=== PATIENT | female | born 1975 | race Caucasian/White ===

== ENCOUNTER 2021-12-13 12:03 | Emergency (ER) | payer OTHER, SELFPAY ==
[2021-12-13] VITALS (35 sets, daily range): BP systolic 152–203; BP diastolic 66–111; PULSE 59–82; RESP 10–25; TEMP 36.3; O2SAT 95–100
--- NOTE | ~2021-12-13 | XR_ITS ---
CORRECTED REPORT wrong order [facility] [place] XR chest 2v DATE: 12/13/2021 13:10 INDICATION: Hypertension TECHNIQUE: 2 views COMPARISON: None FINDINGS: Right ventricular peritoneal shunt catheter. Normal heart size. No hilar or mediastinal enlargement. The lungs are clear of infiltrate or consolidation. There is degenerative spurring and minimal levoscoliosis of the thoracic spine IMPRESSION: No active cardiopulmonary disease Reviewed, dictated and finalized at location A. MTDD
--- NOTE | ~2021-12-13 | CT_ITS ---
EXAMINATION: CT brain wo con DATE: 12/13/2021 13:10 INDICATION: Hypertension. 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 TECHNIQUE: Computed tomography (CT) of the head was performed without intravenous contrast. The mA wa s adjusted according to patient size. Iterative reconstruction technique was employed. Exam dose: 60 5.33 mGy-cm total exam DLP. COMPARISON: None FINDINGS: A ventriculoperitoneal shunt enters the right posterior parietal area, terminating a right frontal horn near midline. Ventricular size is within normal range. Empty sella. No intracranial mass lesion or hemorrhage, midline shift or mass effect. No subdural or epidural david mariia is detected. Large left nasal antral window and left ethmoidectomy. Minimal mucoperiosteal thickening of the right maxillary sinus. The paranasal sinuses and mastoid air cells are otherwise unremarkable. No fracture or bone destruction of the cranial vault. IMPRESSION: Right ventriculoperitoneal shunt; contiguous size within normal range Empty sella No acute intracranial finding Reviewed, dictated and finalized at Location A. Reviewed, dictated and finalized at location A. IMPRESSION: Right ventriculoperitoneal shunt; contiguous size within normal ra nge Empty sella No acute intracranial finding
--- NOTE | 2021-12-13 12:17 | ED.GENADULT ---
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 Thje patient denied any headache or neuro deficit. The patient denied any nausea/ vomiting /abdominal pain or diarrhea. Patient denied any chest pain or shortness of breath. Related Data Home Medications Medication Instructions Recorded Confirmed atorvastatin 80 mg tablet 1 tablet DAILY 12/13/21 12/13/21 ergocalciferol (vitamin D2) 1,250 1 cap WEEKLY 12/13/21 12/13/21 mcg (50,000 unit) capsule multivit with minerals-iron 18 1 tablet PO DAILY 12/13/21 12/13/21 mg-folic ac 400 mcg-vit K 25 mcg tablet (Adults Multivitamin) omeprazole 40 mg capsule,delayed 1 cap DAILY 12/13/21 12/13/21 release sertraline 50 mg tablet 1 tablet DAILY 12/13/21 12/13/21 varenicline 0.5 mg tablet 1 tablet DAILY 12/13/21 12/13/21 Allergies Allergy/AdvReac Type Severity Reaction Status Date / Time azithromycin Allergy Difficulty Verified 12/13/21 12:45 Breathing Penicillins Allergy Itching Verified 12/13/21 12:45 povidone-iodine Allergy Rash Verified 12/13/21 12:45 [From Betadine] Sulfa (Sulfonamide Allergy Difficulty Verified 12/13/21 12:45 Antibiotics) Breathing tetracycline Allergy Difficulty Verified 12/13/21 12:45 Breathing Review of Systems Review of Systems: All systems reviewed & are unremarkable except as noted in HPI and below Constitutional: Constitutional: Reports as per HPI and Reports no additional constitutional complaints Eyes: Eyes: Reports as per HPI and Reports no additional eye complaints ENT: Reports system reviewed and no additional complaints, except as documented and Reports as per HPI Cardiovascular: Cardiovascular: Reports as per HPI and Reports no additional cardiovascular complaints Respiratory: Respiratory: Reports as per HPI and Reports no additional respiratory complaints Gastrointestinal: Gastrointestinal: Reports as per HPI and Reports no additional gastrointestinal complaints Comments: epigastric discomfort from GERD Genitourinary: Genitourinary: Reports no additional female genitourinary complaints and Reports as per HPI Musculoskeletal: Musculoskeletal: Reports no additional musculoskeletal complaints and Reports as per HPI Integumentary/Breasts: Skin/Breast: Reports system reviewed and no additional complaints, except as docu and Reports as per HPI Neurologic: Reports system reviewed and no additional complaints, except as documented and Reports as per HPI Psychiatric: Psychiatric: Reports no additional psychiatric complaints and Reports as per HPI Endocrine: Endocrine: Reports no additional endocrine complaints and Reports as per HPI Hematologic/Lymphatic: Hematologic/Lymphatic: Reports no additional hematologic/lymphatic complaints and Reports as per HPI Allergic/Immunologic: Allergic/Immunologic: Reports no additional allergic/immunologic complaints and Reports as per HPI PMFSH Past Medical History Medical History (Updated 12/13/21 @ 14:05 by Luke Dey MD) section wound complication CSF rhinorrhea Toxemia in Surgical History Surgical History (Updated 12/13/21 @ 12:41 by Luke Dey MD) FARM HAND (ventriculoperitoneal) shunt status Exam Const: General: healthy appearing and no acute distress Nutritional Appearance: well nourished and obese Orientation/consciousness: patient oriented x3 Other: hypertension with a blood pressure of 184/92 HENMT: Head: normal to inspection Ears: external ears normal General nose exam: Normal external nose present Face and sinus: normal facial exam Mouth: Ye
--- NOTE | 2021-12-13 12:42 | ECG_ITS ---
Measurements Intervals [place] Rate: 64 P: 44 MO: 169 QRS: 16 QRSD: 92 T: 23 QT: 416 QTc: 431 Interpretive Statements SINUS RHYTHM NO PREVIOUS ECG AVAILABLE FOR COMPARISON Electronically Signed On 12-13-2021 20:30:53 CDT by Alina Moses M.D.
--- NOTE | 2021-12-13 12:54 | PC.NURSE ---
pt attempting to urinate at this time. Will head to radiology after bathroom.
--- NOTE | 2021-12-13 12:58 | PC.NURSE ---
Off floor to CT scan, urine obtained.
[2021-12-13 13:02] LABS: Add Urine Microscopic? YES; Appearance Urine Clear (Clear); Bilirubin Urine Negative (Negative); Blood Urine 2+ (Negative); Color Urine Light Yellow (Yellow); Glucose Urine UA Negative (Negative); Ketones Urine Negative (Negative); Leukocyte Esterase Ur Negative (Negative); Nitrate Urine Negative (Negative); Protein Urine Negative (Negative); Urobilinogen Urine 0.2 mg/dL (0.2-1.0); pH Urine 5.5 (5.0-8.0)
[2021-12-13 13:06] LABS: Bacteria Urine 1+ /hpf; Squamous Epithelial Cell Urine Moderate /hpf (Few); WBC Urine None seen /hpf (0-3)
[2021-12-13 13:24] LABS: Basophils Absolute Auto 0.04 K/mm3 (0.00-0.10); Basophils Percent Auto 0.4 % (0.0-1.0); Eosinophils Absolute Auto 0.23 K/mm3 (0.02-0.50); Eosinophils Percent Auto 2.5 % (1.0-6.0); Hematocrit 38.4 % (35.0-49.0); Hemoglobin 12.7 g/dL (12.0-15.0); Immature Granulocyte Absolute 0.06 K/mm3 (0.00-0.00); Immature Granulocyte Percent A 0.7 % (0.0-0.0); Lymphocytes Absolute Auto 2.48 K/mm3 (1.10-4.50); Lymphocytes Percent Auto 27.2 % (18.0-42.0); Mean Corpuscular HGB Conc 33.1 g/dL (32.0-36.0); Mean Corpuscular Hemoglobin 28.9 pg (27.0-31.0); Mean Corpuscular Volume 87.5 fL (78.0-102.0); Mean Platelet Volume 10.8 fl (9.2-11.8); Monocytes Absolute Auto 0.71 K/mm3 (0.10-0.90); Monocytes Percent Auto 7.8 % (2.0-11.0); Neutrophils Absolute Auto 5.6 K/mm3 (1.7-7.2); Neutrophils Percent Auto 61.4 % (50.0-70.0); Platelet Count Result 185 K/mm3 (150-420); Red Blood Count 4.39 M/mm3 (4.20-5.40); Red Cell Distribution Width 13.2 % (11.6-14.4); White Blood Count 9.1 K/mm3 (4.8-10.8)
--- NOTE | 2021-12-13 13:28 | PC.NURSE ---
EKG at bedside
[2021-12-13 13:37] LABS: INR 0.9; Prothrombin Time 10.3 Seconds (9.50-12.10)
[2021-12-13 13:51] LABS: Alanine Aminotransferase 42 U/L (14-59); Albumin Level 3.3 g/dL (3.4-5.0); Alkaline Phosphatase 80 U/L (46-116); Anion Gap 9 mmol/L (8-16); Aspartate Amino Transferase 24 U/L (15-37); Bilirubin,Total 0.3 mg/dL (0.00-1.00); Blood Urea Nitrogen 20 mg/dL (7-18); Calcium 8.6 mg/dL (8.5-10.1); Carbon Dioxide 28 mmol/L (21-32); Chloride 105 mmol/L (98-108); Estimated CRCL calculation 75 ml/min; Estimated Glomerular Filt Rate 58; Glucose 97 mg/dL (70-99); NT Pro B Type Natriuretic Pept 175 pg/mL (0-125); Osmolality Calculated 296 mOsm/kg (285-295); Sodium 142 mmol/L (136-145); Total Protein 6.6 g/dL (6.4-8.2)
[2021-12-13 13:57] LABS: Thyroid Stimulating Hormone 3.55 uIU/mL (0.36-3.74); Troponin I 8.3 ng/L (0.00-60.4)
--- NOTE | 2021-12-13 14:43 | PC.NURSE ---
While attempting to discharge patient, BP was 203/111. MD aware, discharge on hold at this time due to elevation. MD to place order to catapres. patient aware, agreeable to plan of care.
[2021-12-13] MEDS: cloNIDine HCL 0.1 MG TABLET PO ×2 (14:47→15:48)
[2021-12-13] MEDS: LOSARTAN POTASSIUM 50 MG TABLET PO (15:48)
== END 2021-12-13 16:50 | disposition home or self-care (01) ==
PROVIDERS: Emergency Provider Internal Medicine Critical Care Medicine; PCP Physician Assistant
DX: I10 Essential (primary) hypertension (principal)
CPT/HCPCS: 36415; 70450; 71045; 71046; 80053; 81001; 83605; 83880; 84443; 84484; 85025; 85610; 93005; 99284; A9270

== ENCOUNTER 2023-12-21 23:19 | Emergency (ER) | payer OTHER, SELFPAY ==
--- NOTE | ~2023-12-21 | CT_ITS ---
EXAMINATION: CT brain wo con DATE: 12/21/2023 23:47 INDICATION: Dizziness. TECHNIQUE: Computed tomography (CT) of the head was performed without intravenous contrast. The mA wa s adjusted according to patient size. Iterative reconstruction technique was employed. The dose-lengt h product was 605.33 mGy-cm. COMPARISON: Head CT 12/13/2021 FINDINGS: There is no intracranial hemorrhage, acute infarction, or abnormal intracranial mass lesion . There is a right occipital shunt catheter that passes through the right lateral ventricle with tip in the anterior corpus callosum on the right. The right lateral ventricle is small. There is an empty sella. The orbits are normal. There is mild mucosal thickening in the paranasal sinuses. There are s urgical changes of the paranasal sinuses. The mastoid air cells are normal. IMPRESSION: 1. Small right lateral ventricle with interval worsening with shunt catheter in unchanged position. Reviewed, dictated and finalized at location E.
[2023-12-21 23:28] VITALS: BP 227/113; PULSE 79; RESP 18; TEMP 37; O2SAT 98
--- NOTE | 2023-12-21 23:28 | ECG_ITS ---
Test Date: 2023-12-21 23:35:50 Measurements Intervals [place] Rate: 58 P: 48 WI: 166 QRS: 29 QRSD: 95 T: 77 QT: 421 QTc: 415 Interpretive Statements SINUS BRADYCARDIA NONSPECIFIC T-WAVE ABNORMALITY INTERPRETATION BASED ON A DEFAULT AGE OF 40 YEARS No previous ECG available for comparison Electronically Signed On 12-23-2023 11:37:54 CDT by Zuleima Gomez M.D.
--- NOTE | 2023-12-21 23:30 | ED.GENADULT ---
HPI - General Adult General Chief complaint: Dizziness Stated complaint: Dizzy Time Seen by Provider: 12/21/23 23:27 History of Present Illness HPI narrative: Jo is a 48F with a PMH of obesity, epilepsy, cranial shunt, and hypertension that presented to the ED with dizziness for about a month. It is worse with getting up and turning her head but she has it at rest as well. She vomited twice but is currently not nauseated. There is no chest pain, dyspnea, diarrhea or palpitations. Related Data Home Medications Medication Instructions Recorded Confirmed atorvastatin 80 mg tablet 1 tablet DAILY 12/13/21 12/21/23 ergocalciferol (vitamin D2) 1,250 1 cap WEEKLY 12/13/21 12/21/23 mcg (50,000 unit) capsule multivit with minerals-iron 18 1 tablet PO DAILY 12/13/21 12/21/23 mg-folic ac 400 mcg-vit K 25 mcg tablet (Adults Multivitamin) omeprazole 40 mg capsule,delayed 1 cap DAILY 12/13/21 12/21/23 release sertraline 50 mg tablet 1 tablet DAILY 12/13/21 12/21/23 varenicline 0.5 mg tablet 1 tablet DAILY 12/13/21 12/21/23 Allergies Allergy/AdvReac Type Severity Reaction Status Date / Time azithromycin Allergy Difficulty Verified 12/13/21 12:45 Breathing Penicillins Allergy Itching Verified 12/13/21 12:45 povidone-iodine Allergy Rash Verified 12/13/21 12:45 [From Betadine] Sulfa (Sulfonamide Allergy Difficulty Verified 12/13/21 12:45 Antibiotics) Breathing tetracycline Allergy Difficulty Verified 12/13/21 12:45 Breathing Review of Systems Review of Systems: All systems reviewed & are unremarkable except as noted in HPI and below PMFSH Past Medical History Medical History section wound complication CSF rhinorrhea Toxemia in Surgical History Surgical History PUMPER HEAD (ventriculoperitoneal) shunt status Exam Const: General: cooperative, healthy appearing, comfortable, no acute distress, well developed, alert, awake and Physically active Orientation/consciousness: oriented to person, oriented to place and oriented to time HENMT: Head: normal to inspection, normocephalic and atraumatic Ears: hearing grossly normal bilaterally and external ears normal Face/Nose/Sinus: Normal external nose present Eyes: General: appearance normal, both eyes and all related structures Periorbital: periorbital findings normal Sclera: sclerae normal Pupils: Equal, round and reactive pupils present Neck: Neck: normal visual inspection Chest: Chest palpation & inspection: normal inspection of the chest Resp: Effort & Inspection: normal respiratory effort, able to speak in complete sentences and no respiratory distress Auscultation: clear to auscultation bilaterally Cardio: Jugular venous distension: no JVD Rate: regular rate Rhythm: regular rhythm GI: Inspection: normal to inspection GI Palp: Yes Soft to palpation Auscultation: normal bowel sounds Skin: General skin exam: normal color and no rashes or lesions noted Neuro: General: oriented to person, oriented to place and oriented to time Cranial nerves: Yes Equal, round and reactive pupils present Other: Right sided nystagmus, vertcal nystagmus and corrective saccade on HINTS exam Extrem: General: normal to inspection Course Course Emergency Course: Ordered EKG, CT, and labs. EKG showed sinus bradycardia with a rate of 58, normal axis, and no ST elevation/depression Ordered PO metoprolol CT showed no hemorrhage, hydrocephalus, mass effect or herniation. Shunt catheter in place DDx: BPPV vs. hypertension vs. CVA vs. PRES vs other Given that her EKG is unremarkable, she does not have AMS, and she is not in acute renal failure there are no signs of end organ damage. I discussed the need to follow up with her primary care provider very soon as she will need additional testing/meds to treat this. She was giv
--- NOTE | 2023-12-21 23:32 | PC.NURSE ---
cardiopulmonary at the bedside. lab notified of new orders
--- NOTE | 2023-12-21 23:34 | PC.NURSE ---
xray at the bedside
--- NOTE | 2023-12-21 23:36 | PC.NURSE ---
patient being transported to ct via stretcher.
[2023-12-21 23:46] VITALS: BP 231/109; PULSE 71; RESP 25; O2SAT 98
[2023-12-21 23:50] VITALS: BP 240/103; PULSE 58; RESP 12; O2SAT 96
[2023-12-21 23:51] VITALS: PULSE 64; RESP 20; O2SAT 96
--- NOTE | 2023-12-21 23:51 | PC.NURSE ---
ER provider at the bedside
--- NOTE | 2023-12-21 23:52 | PC.NURSE ---
ER provider aware of current vital signs
--- NOTE | 2023-12-21 23:57 | PC.NURSE ---
lab at the bedside
[2023-12-22] VITALS: BP 232/93; PULSE 62; RESP 15; O2SAT 96
[2023-12-22 00:02] VITALS: BP 232/93; PULSE 63; RESP 18; O2SAT 99
--- NOTE | 2023-12-22 00:02 | PC.NURSE ---
patient reports that she is no longer taking her blood pressure medications because her provider told her not to.
[2023-12-22 00:08] VITALS: PULSE 67
[2023-12-22] MEDS: METOPROLOL TARTRATE 50 MG TAB PO (00:08)
[2023-12-22 00:14] LABS: Basophils Absolute Auto 0.04 K/mm3 (0.00-0.10); Basophils Percent Auto 0.4 % (0.0-1.0); Eosinophils Absolute Auto 0.09 K/mm3 (0.02-0.50); Eosinophils Percent Auto 0.9 % (1.0-6.0); Hematocrit 44.1 % (35.0-49.0); Hemoglobin 14.6 g/dL (12.0-15.0); Immature Granulocyte Absolute 0.05 K/mm3 (0.00-0.00); Immature Granulocyte Percent A 0.5 % (0.0-0.0); Lymphocytes Absolute Auto 2.85 K/mm3 (1.10-4.50); Mean Corpuscular HGB Conc 33.1 g/dL (32-36); Mean Corpuscular Volume 87.7 fL (78.0-102.0); Mean Platelet Volume 11.5 fl (9.2-11.8); Monocytes Absolute Auto 0.86 K/mm3 (0.10-0.90); Monocytes Percent Auto 8.7 % (2.0-11.0); Neutrophils Absolute Auto 5.94 K/mm3 (1.70-7.20); Neutrophils Percent Auto 60.5 % (50.0-70.0); Platelet Count Result 182 K/mm3 (150-420); Red Blood Count 5.03 M/mm3 (4.20-5.40); Red Cell Distribution Width 13.6 % (11.6-14.4); White Blood Count 9.8 K/mm3 (4.8-10.8)
[2023-12-22 00:30] VITALS: BP 238/99; PULSE 60; RESP 17; O2SAT 96
[2023-12-22 00:32] VITALS: BP 238/99; PULSE 56; RESP 12; O2SAT 97
[2023-12-22 00:43] LABS: Alanine Aminotransferase 30 U/L (14-59); Albumin Level 3.5 g/dL (3.4-5.0); Alkaline Phosphatase 68 U/L (46-116); Anion Gap 8 mmol/L (4-12); Aspartate Amino Transferase 18 U/L (15-37); Bilirubin,Total 0.5 mg/dL (0.00-1.00); Blood Urea Nitrogen 19 mg/dL (7-18); Calcium 9.2 mg/dL (8.5-10.1); Carbon Dioxide 29 mmol/L (21-32); Chloride 103 mmol/L (98-108); Estimated CRCL calculation 53 ml/min; Estimated Glomerular Filt Rate 40; Glucose 100 mg/dL (70-99); Magnesium 1.9 mg/dL (1.8-2.4); NT Pro B Type Natriuretic Pept 969 pg/mL (0-125); Osmolality Calculated 292 mOsm/kg (285-295); Potassium 3.8 mmol/L (3.5-5.1); Sodium 140 mmol/L (136-145); Total Protein 7.4 g/dL (6.4-8.2)
--- NOTE | 2023-12-22 00:51 | PC.NURSE ---
patient resting on stretcher with family at her side. denies any needs at this time. call light in reach. waiting on test results to post.
[2023-12-22 01:05] VITALS: BP 239/90; PULSE 61; RESP 11; O2SAT 99
--- NOTE | 2023-12-22 01:05 | PC.NURSE ---
ER provider at the bedside
--- NOTE | 2023-12-22 01:10 | PC.NURSE ---
patient removed herself from the monitor. ER provider reports that she will be discharged
== END 2023-12-22 01:16 | disposition home or self-care (01) ==
PROVIDERS: Emergency Provider Family Medicine; PCP Physician Assistant
DX: R42 Dizziness and giddiness (principal); I16.0 Hypertensive urgency; Z79.899 Other long term (current) drug therapy
CPT/HCPCS: 36415; 70450; 80053; 83735; 83880; 84484; 85025; 93005; 99284; A9270

== ENCOUNTER 2023-12-29 12:58 | Outpatient (CLI) | payer OTHER, SELFPAY ==
--- NOTE | ~2023-12-29 | CT_ITS ---
CT facial bones wo con Ordering provider: Saul Andrew, ELVIA History: . Headache . Comparison: None. Technique: Thin slice axial CT of the facial bones was performed without contrast. Coronal and sagit kahlil reformatted images were also obtained. . Automated exposure control and iterative reconstruction technique were employed. The dose-length product was 763.27 mGy-cm. FINDINGS: PARANASAL SINUSES: Post operative changes in the medial wall of the left maxillary sinus. Right nasal septal deviation. BONES: No facial fracture. Cystic lesion seen in the area of the upper mandible anteriorly and to the left which may indicate abscess or dental cyst. Another smaller one is seen on the right side simila r changes seen anteriorly in the lower mandible. Dental caries are noted in the lower and upper jaw. ORBITS AND SUPERFICIAL SOFT TISSUES: The optic globes and orbits are normal. The superficial soft tis sues are normal. VISUALIZED MASTOIDS: Well aerated. LIMITED VISUALIZED BRAIN PARENCHYMA: Normal. Empty sella turcica. Right shunt tube is noted. IMPRESSION: No facial fracture. Cystic areas in the upper and lower mandible for further evaluation. Reviewed, dictated and finalized at location A.
--- NOTE | ~2023-12-29 | CT_ITS ---
EXAMINATION: CT brain wo con DATE: 12/29/2023 14:02 INDICATION: Headache. TECHNIQUE: Computed tomography (CT) of the head was performed without intravenous contrast. The mA wa s adjusted according to patient size. Iterative reconstruction technique was employed. The dose-lengt h product was 605.33 mGy-cm. COMPARISON: Head CT 12/21/2023 FINDINGS: There is low attenuation in the occipital lobes bilaterally. There is no intracranial hemor rhage or abnormal mass lesion. Right lateral ventricle is small and slitlike. There is a right occipi kahlil shunt catheter that passes through the right lateral ventricle with tip in the anterior corpus ca llosum on the right. The orbits are normal. There is an empty sella. There is mild mucosal thickening in the paranasal sinuses. There are surgical changes of the paranasal sinuses. The mastoid air cells are normal. IMPRESSION: 1. Low attenuation in the occipital lobes, which may be posterior reversible encephalopathy syndrome (PRES) or acute/subacute infarcts. Consider brain MRI without and with contrast. 2. Unchanged slit-like right lateral ventricle with unchanged catheter position. Reviewed, dictated and finalized at location A. IMPRESSION: 1. Low attenuation in the occipital lobes, which may be posterior reversible en cephalopathy syndrome (PRES) or acute/subacute infarcts. Consider brain MRI wit hout and with contrast. 2. Unchanged slit-like right lateral ventricle with unchanged catheter position .
--- NOTE | ~2023-12-29 | US_ITS ---
EXAMINATION: US carotid duplex BI DATE: 12/29/2023 13:40 INDICATION: Dizziness. TECHNIQUE: Grayscale, color Doppler, and pulsed Doppler images of the cervical carotid arteries were obtained. The degree of vessel stenosis is placed in one of the following categories: normal, <50%, 5 0-69%, >=70% but less than near-occlusion, near-occlusion, or total occlusion. Note that percent sten osis relative to normal distal artery lumen diameter is indirectly measured from velocity measurement s as described by Terrell, et al. Radiology 2003; 229:340-346. COMPARISON: None. FINDINGS: RIGHT: The right common carotid artery (CCA) peak systolic velocity (PSV) is 102 cm/s. The right internal ca rotid artery (ICA) PSV is 108 cm/s. The right ICA end-diastolic velocity (EDV) is 38 cm/s. The right ICA/CCA PSV ratio is 1.1. Grayscale and color Doppler images yield an estimate of <50% diameter reduc tion from plaque in the ICA. There is antegrade flow in the right vertebral artery. LEFT: The left CCA PSV is 79 cm/s. The left ICA PSV is 144 cm/s. The left ICA EDV is 47 cm/s. The left ICA/ CCA PSV ratio is 1.8. Grayscale and color Doppler images yield an estimate of <50% diameter reduction from plaque in the ICA. There is antegrade flow in the left vertebral artery. IMPRESSION: 1. <50% stenosis in the right internal carotid artery. 2. <50% stenosis in the left internal carotid artery. Reviewed, dictated and finalized at location A.
== END 2023-12-29 12:59 | disposition home or self-care (01) ==
LOC: CHSIMG 13:00
PROVIDERS: PCP Physician Assistant; Visit Provider Physician Assistant
DX: R42 Dizziness and giddiness (principal); R51.9 Headache, unspecified; R93.0 Abnormal findings on diagnostic imaging of skull and head, not elsewhere classified; I65.23 Occlusion and stenosis of bilateral carotid arteries
CPT/HCPCS: 70450; 70486; 93880

== ENCOUNTER 2024-01-10 07:35 | Outpatient (CLI) | payer OTHER, SELFPAY ==
--- NOTE | ~2024-01-10 | MR_ITS ---
EXAMINATION: MR brain/brain stem wo/w con DATE: 01/10/2024 08:57 INDICATION: Headache. Abnormal head CT. TECHNIQUE: Magnetic resonance imaging (MRI) of the brain and brainstem was performed without and with 10 mL MultiHance intravenous contrast. COMPARISON: Head CT 12/29/2023 FINDINGS: There is an empty sella. There are acute infarcts involving the occipital lobes. There are subacute infarcts involving the bilateral cerebellum, bilateral occipital lobes, and left temporal lo be with contrast enhancement. There are scattered areas of nonspecific increased T2-weighted signal i ntensity in the cerebral white matter. There is no intracranial hemorrhage or abnormal mass lesion. R ight lateral ventricle is small and slit-like. A right-sided ventriculostomy catheter is noted that c ourses through the right lateral ventricle with tip in the corpus callosum. There is mild mucosal thi ckening in the paranasal sinuses. The mastoid air cells are normal. The orbits are normal. IMPRESSION: 1. 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 2. Subacute infarcts involving the occipital lobes, left temporal lobe, and bilateral cerebellum. 3. Small slitlike right lateral ventricle with unchanged shunt catheter. Reviewed, dictated and finalized at location A. IMPRESSION: 1. 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 2. Subacute infarcts involving the occipital lobes, left temporal lobe, and tyler ateral cerebellum. 3. Small slitlike right lateral ventricle with unchanged shunt catheter.
== END 2024-01-10 07:36 | disposition home or self-care (01) ==
LOC: CHSIMG 07:36
PROVIDERS: PCP Physician Assistant; Visit Provider Physician Assistant
DX: R90.89 Other abnormal findings on diagnostic imaging of central nervous system (principal); I63.89 Other cerebral infarction; Z98.2 Presence of cerebrospinal fluid drainage device
CPT/HCPCS: 70553; A9577

== ENCOUNTER 2024-01-29 11:04 | Outpatient (CLI) | payer OTHER, SELFPAY ==
--- NOTE | 2024-02-09 14:13 | WPDHOLTEREM ---
Holter/Event Monitor Holter/Event Monitor Date of procedure: 01/29/24 Holter/Event Procedure: 48 Hr Holter Monitor Indications: Occipitotemporal infarct Conclusion: 1. 48 hour holter monitor on 01/29/24. 2. Underlying rhythm is sinus rhythm. HR range 49-128 bpm; average HR 70 bpm. HR at 49 bpm was at 06:13. 3. There are 30 premature supraventricular complexes, 1 supraventricular couplet and 2 supraventricular triplets. No supraventricular tachycardia. 4. No premature ventricular complexes. No ventricular tachycardia. 5. No sinoatrial or atrioventricular blocks. No significant pauses greater than 2 seconds. 6. Patient reports 2 episodes of symptoms of dizziness which demonstrate sinus rhythm, HR range 64-77 bpm.
== END 2024-01-29 11:05 | disposition home or self-care (01) ==
LOC: CHSCARD 11:06
PROVIDERS: PCP Physician Assistant; Visit Provider Physician Assistant
DX: I63.9 Cerebral infarction, unspecified (principal)
CPT/HCPCS: 93225; 93226

== ENCOUNTER 2024-12-10 18:12 | Emergency (ER) | payer OTHER, SELFPAY ==
[2024-12-10] VITALS (11 sets, daily range): BP systolic 137–146; BP diastolic 72–73; PULSE 46–60; RESP 13–19; TEMP 36.6; O2SAT 97–100
--- NOTE | ~2024-12-10 | CT_ITS ---
EXAMINATION: CT brain wo con DATE: 12/10/2024 18:38 INDICATION: Stroke . TECHNIQUE: Computed tomography (CT) of the head was performed without intravenous contrast. The mA wa s adjusted according to patient size. Iterative reconstruction technique was employed. The dose-lengt h product was 605.33 mGy-cm. COMPARISON: 12/29/2023 MRI brain 01/10/2024. FINDINGS: No acute intracranial hemorrhage or extra-axial fluid collection. No hydrocephalus, mass, or herniation. No acute ischemic infarct. Unremarkable dural venous sinus attenuation. No acute osseous abnormality. Right parietal approach SURGICAL ASSISTANT CERTIFIED shunt terminating at the midline probably wi thin the corpus callosum or tenting the anterior portion of a frontal horn, stable in position. Small retention cyst/polyp in the left maxillary sinus. Status post left maxillary window procedure. The remaining aerated spaces are clear. Bilateral medial occipital encephalomalacia. Stable slitlike right frontal horn. Empty sella. Stable 9 mm dermal lesion over the left scalp. IMPRESSION: No acute intracranial process. Results reported telephonically to Dr. Petty by Dr. Bang at 6:26 PM on 12/10/2024. Reviewed, dictated and finalized at location K. IMPRESSION: No acute intracranial process. Results reported telephonically to Dr. Petty by Dr. Bang at 6:26 PM on 12/10.
--- NOTE | ~2024-12-10 | XR_ITS ---
EXAMINATION: XR chest 1V portable Exam Date/Time: 12/10/2024 18:40 CDT HISTORY: weakness Comparison: 12/13/2021. RESULT: Lines, tubes, and devices: Intact AGRICULTURAL INSPECTOR shunt tubing traverses the right chest. Lungs and pleura: Clear. Cardiomediastinal silhouette: Stable. Other: No acute osseous or upper abdominal finding. IMPRESSION: No acute cardiopulmonary process. Reviewed, dictated and finalized at location K.
--- NOTE | 2024-12-10 18:30 | ED_ITS ---
HPI - Weakness General Chief complaint: Weakness Stated complaint: possible CVA Time Seen by Provider: 12/10/24 18:29 Source: patient Mode of arrival: ambulatory Limitations: no limitations History of Present Illness HPI Narrative: patient is a 49-year-old female with prior stroke x2 and hypertension here with a weakness and concerns for her shunt and stroke. She was met initially to go to CT scan directly and her NIH score was 0. Last known well was 5 days ago. She has been having some falls. She is having some weakness. Her initial GCS was 15. She is not a tPA candidate. MD Complaint: generalized weakness Onset (ago): day(s) ( Five) Duration: constant Location: generalized Migration: none Severity: mild Severity scale (1-10): 2 Quality: other ( none) Relieving factors: none Exacerbating factors: none Context: other ( patient has mostly come to the ER for concerns of her shot having a problem and her weakness and falls. She called in to EMS with possible stroke.) Associated symptoms: denies other symptoms Related Data Home Medications ?Medication ?Instructions ?Recorded ?Confirmed ?Last Taken ?Type atorvastatin 80 mg tablet 1 tablet PO DAILY 12/13/21 12/21/23 Unknown History multivit with minerals-iron 18 1 tablet PO DAILY 12/13/21 12/21/23 Unknown History mg-folic ac 400 mcg-vit K 25 mcg tablet (Adults Multivitamin) omeprazole 40 mg capsule,delayed 1 cap PO DAILY 12/13/21 12/21/23 Unknown History release amlodipine 10 mg tablet 5 mg PO DAILY 12/10/24 Unknown History sertraline 100 mg tablet 100 mg PO Q24H 12/10/24 Unknown History topiramate 50 mg tablet 50 mg PO Q12H 12/10/24 Unknown History Allergies Allergy/AdvReac Type Severity Reaction Status Date / Time azithromycin Allergy Difficulty Verified 12/13/21 12:45 Breathing Penicillins Allergy Itching Verified 12/13/21 12:45 povidone-iodine (From Allergy Rash Verified 12/13/21 12:45 Betadine) Sulfa (Sulfonamide Allergy Difficulty Verified 12/13/21 12:45 Antibiotics) Breathing tetracycline Allergy Difficulty Verified 12/13/21 12:45 Breathing Review of Systems 2 Review of Systems: All systems reviewed & are unremarkable except as noted in HPI and below Constitutional: Constitutional: Reports no additional constitutional complaints Eyes: Eyes: Reports no additional eye complaints ENT: Reports system reviewed and no additional complaints, except as documented Cardiovascular: Cardiovascular: Reports no additional cardiovascular complaints Respiratory: Respiratory: Reports no additional respiratory complaints Gastrointestinal: Gastrointestinal: Reports no additional gastrointestinal complaints Genitourinary: Genitourinary: Reports no additional female genitourinary complaints Musculoskeletal: Musculoskeletal: Reports no additional musculoskeletal complaints Integumentary/Breasts: Skin/Breast: Reports system reviewed and no additional complaints, except as docu Neurologic: Reports system reviewed and no additional complaints, except as documented Psychiatric: Psychiatric: Reports no additional psychiatric complaints Endocrine: Endocrine: Reports no additional endocrine complaints Hematologic/Lymphatic: Hematologic/Lymphatic: Reports no additional hematologic/lymphatic complaints Allergic/Immunologic: Allergic/Immunologic: Reports no additional allergic/immunologic complaints PMFSH Past Medical History Medical History section wound complication 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 Surgical History Surgical History CERTIFIED MASTER LOCKSMITH (ventriculoperitoneal) shunt status Exam 2 Const: General: healthy appearing Nutritional Appearance: well nourished Orientation/consciousness: patient oriented x3 Limitations: no limitations HENMT: Head: normal to inspection Ears: external ears normal F ladi/Nose/Sinus: Normal external nose present Eyes: Conjunctivae: conjunctivae normal Pupils: Equal, round and reactive pupils present EOM: EOMs intact bilaterally Neck: Neck: normal visual inspection Chest: Chest palpation & inspection: normal inspection of the chest Resp: Effort & Inspection: normal respiratory effort and not labored A uscultation: clear to auscultation bilaterally and no crackles Cardio: Rate: regular rate Rhythm: regular rhythm Heart sounds: no murmurs GI: Inspection: non-distended GI Palp: Yes Soft to palpation and No Tenderness to palpation present (GI) Auscultation: normal bowel sounds : General: Yes bladder normal to palpation Back/Spine/Pelvis: Back: no CVA tenderness Skin: General skin exam: normal color Rashes: no rashes Wounds: no wounds Neuro: General: patient oriented x3, moves all extremities, no meningeal signs, no focal motor deficits and CN's II-XI intact bilaterally Cranial nerves: Yes Nystagmus not present Speech: normal speech ( except for she is missing her top row of teeth) Gait exam (Neuro): gait abnormal ( due to general weakness) Extrem: General: normal to inspection Psych: Mental Status: mental status grossly normal Affect: normal affect Attitude: cooperative Course Vital Signs Vital signs: Vital Signs Temperature 36.6 C 12/10/24 18:40 Pulse Rate 60 12/10/24 18:40 Respiratory Rate 16 12/10/24 18:40 Blood Pressure 137/73 12/10/24 18:40 Pulse Oximetry 100 12/10/24 18:40 Oxygen Delivery Room Air 12/10/24 18:40 Temperature 36.6 C 12/10/24 18:40 Pulse Rate 60 12/10/24 18:40 Respiratory Rate 16 12/10/24 18:40 Blood Pressure 137/73 12/10/24 18:40 Pulse Oximetry 100 12/10/24 18:40 Oxygen Delivery Room Air 12/10/24 18:40 MDM - Weakness MDM Narrative Medical decision making narrative: patient is a 49-year-old female with general weakness and concerns for her shunt. Who will do a workup at this time. Initially she was a stroke portal and we further learned later that she was 5 days of weakness. Also she did not have any focal neurological deficits. She is not tPA candidate. Lab Data Attestation: I reviewed the patient's lab results. 12/10/24 18:20 12/10/24 18:20 Labs: Lab Results 12/10/24 12/10/24 Range/Units 18:20 18:57 WBC 7.5 (4.8-10.8) K/mm3 RBC 4.91 (4.20-5.40) M/mm3 Hgb 13.4 (12.0-15.0) g/dL Hct 42.7 (35.0-49.0) % MCV 87.0 (78.0-102.0) fL MCH 27.3 (27.0-31.0) pg MCHC 31.4 L (32-36) g/dL RDW 13.3 (11.6-14.4) % Plt Count 218 (150-420) K/mm3 MPV 11.1 (9.2-11.8) fl Immature Gran % (Auto) 0.7 H (0.0-0.0) % Neut % (Auto) 75.0 H (50.0-70.0) % Lymph % (Auto) 17.4 L (18.0-42.0) % [place] % (Auto) 5.6 (2.0-11.0) % Eos % (Auto) 0.8 L (1.0-6.0) % Baso % (Auto) 0.5 (0.0-1.0) % Lymph # (Auto) 1.30 (1.10-4.50) K/mm3 [place] # (Auto) 0.42 (0.10-0.90) K/mm3 Eos # (Auto) 0.06 (0.02-0.50) K/mm3 Baso # (Auto) 0.04 (0.00-0.10) K/mm3 Abs Immat Gran (auto) 0.05 H (0.00-0.00) K/mm3 Absolute Neuts (auto) 5.60 (1.70-7.20) K/mm3 Absolute Nucleated RBC 0.00 (0.00-0.00) K/mm3 Nucleated RBC % 0.0 (0-0.0) % PT 10.7 (9.50-12.1) Seconds INR 1.0 APTT 23.6 L (23.9-30.70) Sec Sodium 139 (137-145) mmol/L Potassium 3.3 L (3.4-5.0) mmol/L Chloride 109 H (98-107) mmol/L Carbon Dioxide 20 L (22-30) mmol/L Anion Gap 10 (4-12) mmol/L BUN 25 H (7-17) mg/dL Creatinine 1.34 H (0.7-1.0) mg/dL Estim Creat Clear Calc 50 ml/min Estimated GFR 42 L (59 - ) Glucose 114 H (65-110) mg/dL Calculated Osmolality 293 (285-295) mOsm/kg Calcium 9.1 (8.4-10.2) mg/dL Magnesium 1.7 (1.6-2.3) mg/dL Total Bilirubin 0.6 (0.2-1.3) mg/dL AST 17 (14-36) U/L ALT 15 (6-35) U/L Alkaline Phosphatase 77 (38-126) U/L Troponin I < 0.012 (0.000-0.034) ng/mL Total Protein 7.6 (6.3-8.2) g/dL Albumin 4.2 (3.5-5.1) g/dL Urine Color Yellow (Yellow) Urine Appearance Cloudy A (Clear) Urine pH 5.5 (5.0-8.0) Ur Specific [place] >= 1.030 H (1.010-1.020) Urine Protein Trace H (Negative) Urine Glucose (UA) Negative (Negative) Urine Ketones Trace H (Negative) Ur Blood (Man) 1+ H (Negative) Urine Nitrate Negative (Negative) Urine Bilirubin 2+ H (Negative) Urine Urobilinogen 1.0 (0.2-1.0) mg/dL Leukocyte Esterase Rfl Negative (Negative) NARINDER/UL Urine RBC 0-2 (0-2) /hpf Urine WBC 0-3 (0-3) /hpf Ur Squamous Epith Cells Many H (Few) /hpf Urine Bacteria 1+ H (None) /hpf Urine Mucus Few H /lpf Imaging Data Attestation: I personally reviewed and interpreted this imaging study as follows: Radiologist's impression: CT scan of the head shows no acute process and a stable shunt chest x-ray is negative for acute process ECG Data EKG #1: Attestation: I personally reviewed and interpreted this ECG as follows: ECG completion date: 12/10/24 ECG completion time: 20:57 EKG Interpretation: bradycardia, sinus rhythm, no ectopy, no ST changes, normal QRS, normal QT and NL axis Discharge Plan Discharge Clinical Impression: TWIN (acute kidney injury), Acute dehydration, Hypokalemia Patient Disposition: Home Condition: Stable Instructions: Dehydration (ED) Additional Instructions: please follow-up with the primary doctor in the next week. Have your electrolytes and kidney function rechecked at follow-up. Patient Language: Luxembourgish Prescriptions: No Action atorvastatin 80 mg tablet 1 tablet PO DAILY omeprazole 40 mg capsule,delayed release(DR/EC) 1 cap PO DAILY Adults Multivitamin 18 mg iron-400 mcg-25 mcg Tablet 1 tablet PO DAILY sertraline 100 mg tablet 100 mg PO Q24H topiramate 50 mg tablet 50 mg PO Q12H amlodipine 10 mg tablet 5 mg PO DAILY Follow-up/Referrals: UNKNOWN,DOCTOR [Non-Staff] - Time of Disposition: 20:59
[2024-12-10 18:42] LABS: Basophils Absolute Auto 0.04 K/mm3 (0.00-0.10); Basophils Percent Auto 0.5 % (0.0-1.0); Eosinophils Absolute Auto 0.06 K/mm3 (0.02-0.50); Eosinophils Percent Auto 0.8 % (1.0-6.0); Hematocrit 42.7 % (35.0-49.0); Hemoglobin 13.4 g/dL (12.0-15.0); Immature Granulocyte Absolute 0.05 K/mm3 (0.00-0.00); Immature Granulocyte Percent A 0.7 % (0.0-0.0); Lymphocytes Percent Auto 17.4 % (18.0-42.0); Mean Corpuscular HGB Conc 31.4 g/dL (32-36); Mean Corpuscular Hemoglobin 27.3 pg (27.0-31.0); Mean Platelet Volume 11.1 fl (9.2-11.8); Monocytes Absolute Auto 0.42 K/mm3 (0.10-0.90); Monocytes Percent Auto 5.6 % (2.0-11.0); Platelet Count Result 218 K/mm3 (150-420); Red Blood Count 4.91 M/mm3 (4.20-5.40); Red Cell Distribution Width 13.3 % (11.6-14.4); White Blood Count 7.5 K/mm3 (4.8-10.8)
[2024-12-10 18:43] LABS: Partial Thromboplastin Time 23.6 Sec (23.9-30.70); Prothrombin Time 10.7 Seconds (9.50-12.1)
[2024-12-10 18:49] LABS: Alanine Aminotransferase 15 U/L (6-35); Albumin Level 4.2 g/dL (3.5-5.1); Alkaline Phosphatase 77 U/L (38-126); Anion Gap 10 mmol/L (4-12); Aspartate Amino Transferase 17 U/L (14-36); Bilirubin,Total 0.6 mg/dL (0.2-1.3); Blood Urea Nitrogen 25 mg/dL (7-17); Calcium 9.1 mg/dL (8.4-10.2); Carbon Dioxide 20 mmol/L (22-30); Chloride 109 mmol/L (98-107); Estimated CRCL calculation 50 ml/min; Estimated Glomerular Filt Rate 42; Glucose 114 mg/dL (65-110); Magnesium 1.7 mg/dL (1.6-2.3); Osmolality Calculated 293 mOsm/kg (285-295); Potassium 3.3 mmol/L (3.4-5.0); Sodium 139 mmol/L (137-145); Total Protein 7.6 g/dL (6.3-8.2)
[2024-12-10 19:00] LABS: Troponin I < 0.012 ng/mL (0.000-0.034)
[2024-12-10 19:04] LABS: Add Urine Microscopic? YES; Appearance Urine Cloudy (Clear); Bilirubin Urine 2+ (Negative); Blood Urine 1+ (Negative); Color Urine Yellow (Yellow); Glucose Urine UA Negative (Negative); Ketones Urine Trace (Negative); Leukocyte Esterase Ur Negative LEU/UL (Negative); Nitrate Urine Negative (Negative); Protein Urine Trace (Negative); Specific Grav Ur >= 1.030 (1.010-1.020); pH Urine 5.5 (5.0-8.0)
[2024-12-10 19:09] LABS: Bacteria Urine 1+ /hpf; Mucus Urine Few /lpf; RBC Urine 0-2 /hpf (0-2); Squamous Epithelial Cell Urine Many /hpf (Few); WBC Urine 0-3 /hpf (0-3)
[2024-12-10] MEDS: SODIUM CHLORIDE 0.9% IV 1,000 ML 999 ML IV CONT (19:17)
[2024-12-10] MEDS: POTASSIUM BICARBONATE 25 MEQ TABEF PO (19:18)
--- NOTE | 2024-12-10 19:24 | ECG_ITS ---
Test Date: 2024-12-10 19:51:42 Measurements Intervals [place]oks Rate: 53 P: 54 ME: 177 QRS: 31 QRSD: 97 T: 48 QT: 467 QTc: 440 Interpretive Statements SINUS BRADYCARDIA EARLY PRECORDIAL R/S TRANSITION LOW QRS VOLTAGE IN PRECORDIAL LEADS BORDERLINE ECG Compared to ECG 12/21/2023 23:35:50 NO SIGNIFICANT CHANGE Electronically Signed On 12-11-2024 06:24:26 CDT by Vinicio Pettit D.O.
== END 2024-12-10 21:36 | disposition home or self-care (01) ==
PROVIDERS: Emergency Provider Emergency Medicine; PCP Physician Assistant
DX: N17.9 Acute kidney failure, unspecified (principal); E86.0 Dehydration; E87.6 Hypokalemia; I10 Essential (primary) hypertension; Z79.899 Other long term (current) drug therapy; Z86.73 Personal history of transient ischemic attack (TIA), and cerebral infarction without residual deficits; Z91.81 History of falling
CPT/HCPCS: 36415; 70450; 71045; 80053; 81001; 83735; 84484; 85025; 85610; 85730; 93005; 96360; 99284; A9270; J7030

== ENCOUNTER 2025-02-18 17:57 | Emergency (ER) | payer OTHER, SELFPAY ==
[2025-02-18] VITALS (10 sets, daily range): BP systolic 103–138; BP diastolic 66–85; O2SAT 96–100
--- NOTE | ~2025-02-18 | CT_ITS ---
History: Right-sided head pain after a fall PROCEDURE: CT head without contrast. COMPARISON: 12/10/2024 TECHNIQUE: Axial imaging of the head performed from the skull base to the vertex without IV contrast. Sagittal a nd coronal reformations obtained. DLP: 605 mGy-cm FINDINGS: Small slitlike right lateral ventricle, unchanged from prior. Redemonstration of a right-sided ventriculostomy catheter coursing through the right lateral ventricl e with its tip in the right corpus callosum, unchanged from prior. The right sided ventriculostomy catheter is continuous from its origin to the level of the C1/C2 vert ebral body, without disruption. The left lateral ventricle is unremarkable in size. There is no mass, mass effect or midline shift. There is no abnormal extra-axial fluid collection or intracranial hemorrhage. Visualized paranasal sinuses are clear. The mastoid air cells are well aerated. No acute displaced fractures within the overlying cranium. Impression: Stable CT examination of the head without acute intracranial hemorrhage or suspicious mass effect. No acute fractures are appreciated. Reviewed, dictated and finalized at location A. Impression: Stable CT examination of the head without acute intracranial hemorrhage or susp icious mass effect. No acute fractures are appreciated.
--- NOTE | ~2025-02-18 | CT_ITS ---
History: Fall PROCEDURE: CT cervical spine without intravenous contrast. COMPARISON: None TECHNIQUE: Multiple contiguous axial images of the cervical spine were performed without the administration of i ntravenous contrast. DLP: 447 mGy-cm FINDINGS: Straightening and slight reversal of the normal curvature of the cervical spine is identified, likely muscular in origin. Significant degenerative disease is also present, with osteophyte formation, disc space narrowing, fa cet arthropathy and vacuum phenomena. This is most prominent at the level of C5/C6. No acute fractures are present. Centrilobular emphysema is identified within the visualized lung apices. No soft tissue abnormality is appreciated. The airway is patent. Impression: Straightening and slight reversal of the normal curvature of the cervical spine, likely muscular in o rigin. Severe degenerative disease, without acute fracture. Reviewed, dictated and finalized at location A. Impression: Straightening and slight reversal of the normal curvature of the cervical spine , likely muscular in origin. Severe degenerative disease, without acute fracture.
--- NOTE | ~2025-02-18 | XR_ITS ---
HISTORY: FALL. RIGHT SHOULDER PAIN. COMPARISON: None TECHNIQUE: 3 views of the right shoulder were performed FINDINGS: No acute fracture. The glenohumeral and acromioclavicular joint space is maintained Redemonstration of patient's known ventriculoperitoneal shunt catheter projecting to the right of mid line. The remainder of the visualized portion of the adjacent right lung is otherwise clear. The humeral head is well seated within the glenoid fossa. IMPRESSION: No acute fracture or anterior dislocation. Reviewed, dictated and finalized at location A.
--- NOTE | ~2025-02-18 | XR_ITS ---
HISTORY: FALL. RIGHT HIP PAIN. COMPARISON: None TECHNIQUE: 2 views of the right hip along with an AP view of the pelvis FINDINGS: No acute fracture or dislocation is identified. Superior lateral sclerosis of the femoral acetabular joint space is present consistent with osteoarth ritis. Small bore catheter projects over the lower abdomen and pelvis, consistent with patient's ventriculop eritoneal shunt. Normal mineralization. IMPRESSION: Degenerative disease, without acute fracture or dislocation. Reviewed, dictated and finalized at location A.
--- NOTE | ~2025-02-18 | XR_ITS ---
CHEST RADIOGRAPH CLINICAL HISTORY: fall . COMPARISON: 12/10/2024 TECHNIQUE: Single portable view of the chest. FINDINGS The cardiomediastinal silhouette is unremarkable. Ventriculoperitoneal shunt catheter projects to the right of midline. The lungs are clear. IMPRESSION: No focal infiltrate or effusion. Reviewed, dictated and finalized at location A.
--- OUTSIDE RECORDS SUMMARY | 2025-02-18 17:59 | XMS_ITS | Encounter Summary ---
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
--- OUTSIDE RECORDS SUMMARY | 2025-02-18 17:59 | XMS_ITS | Clinical Summary ---
Author Organization [facility] Address [address] [place] [id number] Care Team Providers Care Athletic Equipment Manager Name Role Phone Thaddeus Medrano MD Primary Care Provider [phone] Social History Tobacco Use Types Packs/Day Years Used Date Smoking Tobacco: Never Assessed Comments Unknown Sex and Gender Information Value Date Recorded Sex Assigned at Not on file Legal Sex Female 9:24 PM CORDWAINER Gender Identity Not on file Sexual Orientation Not on file Plan of Treatment Health Maintenance Due Date Last Done Comments Cervical Cancer Screening Pa p Smear (Age 30 to 64) Every 3 Years 1973 Colorectal Cancer Screening Colonoscopy (10 Years) 1973 Annual Physical 1976 Hepatitis C 1991 DTaP, Tdap and Td Vaccines ( 1 - Tdap) 1992 Hepatitis B Vaccines (1 of 3 - 19+ 3-dose series) 1992 Cervical Cancer Screening Pa p with HPV Testing (Age 30 to 64) Every 5 Years 2003 Cervical Cancer Screening with HPV 2003 Mammogram Screening 07/27/2021 07/27/2019 Pneumococcal Vaccine: 50+ Ye ars (1 of 1 - PCV) 2023 Zoster Vaccines (1 of 2) 2023 COVID-19 Vaccine (1 - 2023-2 5 season) 2024 Meningococcal B Vaccine Aged Out No l onger eligible based on patient's age to complete this topic Meningococcal Vaccine Aged Out No pancho liz eligible based on patient's age to complete this topic RSV Immunizations Under 20 Months Aged Out No longer eligible based on patient's age to complete this topic Procedures Procedure Name Priority Date/Time Associated Diagnosis Comments MG DIAG W TANVI BILAT DIGI Routine 07/27/2019 9:46 AM CORDWAINER Abscess of right breast from Last 3 Months or Most Recently Relevant to Health Maintenance Results * MG DIAG W TANVI BILAT DIGI (07/27/2019 9:46 AM CORDWAINER) Anatomical Region Laterality Modality Breast Bilateral Mammography, Rad iographic Imaging 08/03/2019 11:1 3 AM CORDWAINER Narrative 08/03/2019 11:29 AM CORDWAINER Examination: BILATERAL DIGITAL DIAGNOSTIC MAMMOGRAM WITH TOMOSYNTHESIS [id number] Clinical Indication: WADE SZYMANSKI Female 44 years of age presents for evaluation right 4:00 palpable lump, at site of reported treated abscess. Patient reports considerable improvement of symptoms in this region after recent antibiotic trial x2. Routine screening left breast. Additional Pertinent History: Reports 30 pound weight loss since last mammogram. Comparison: Baseline screening mammogram 08/22 Technique: CC, MLO, and multiple spot images. Tomosynthesis imaging acquisition. Study supplemented with computer aided detection program. Static sonographic grayscale images obtained supplemented with Doppler. Ultrasound performed at a later date due to patient's insurance coverage. Tissue density: There are scattered areas of fibroglandular density. Findings: Fairly stable glandular pattern given differences in technique and weight loss. Triangular palpable marker placed in the clinical area concern lower inner mid right breast. Spot imaging of this area demonstrates prominent blood vessel but no suspicious underlying lesion. Targeted ultrasound performed to further characterize. A few scattered calcifications. Interval coarsening of focal left inferior or posterior calcifications with features suggestive of a progressive dystrophic process. No new suspicious grouping of microcalcifications, architectural distortion, or new dominant suspicious nodule 3 dimensionally demonstrated in either breast. Examination: RIGHT BREAST ULTRASOUND Findings: Targeted sonographic evaluation in the 4:00 clinical area of concern demonstrates some mild skin thickening and prominent subdermal blood vessel. The former may be quality audit representative residual sequelae of treated mastitis-abscess given patient's history. No focal fluid collection to suggest abscess at this time. No hyperemic changes. IMPRESSION 1. No suspicious mammographic or sonographic findings in right 4:00 area of reported treated abscess. Further management of this now should be determined on a clinical basis. 2. No interval features to suggest malignancy in the left breast. 3. Additional stable and benign findings, detailed above. RECOMMENDATION: 1: Routine screening mammogram Left in 1 Year 2: Clinical management Right ASSESSMENT: ACR BI-RADS CATEGORY 2 - BENIGN FINDING(S) Interpreted By: Gwen Peters MD, 08/03/2019 11:13 AM Saul BROWN MAMMO Final Result from Last 3 Months or Most Recently Relevant to Health Maintenance Insurance [facility]LY [facility], [facility] Care Teams Athletic Equipment Manager Relationship Specialty Start Date End Date Thaddeus Medrano MD [address] [place] [phone] PCP - General FAMILY PRACTICE 07/05/19
--- NOTE | 2025-02-18 18:14 | ED_ITS ---
HPI - Fall General Chief Complaint: Fall Stated Complaint: fall Time Seen by Provider: 02/18/25 18:14 Source: patient Mode of arrival: EMS Limitations: no limitations History of Present Illness HPI Narrative: Patient is a 49-year-old female with a fall ground level prior to arrival. She hurt her head on the righ she hurt the right shoulder and right hip. No LOC. 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 complaint: fall Onset (ago): day(s) ( One) Fall from: standing Fall witnessed: no Place fall occurred: home Loss of consciousness: none Prolonged down time: yes, unclear, minute(s), hour(s) and day(s) Symptoms prior to fall: none Location of injury: head and buttocks Severity: moderate Severity scale (1-10): 5 Quality: burning and throbbing Associated symptoms (after fall): weakness, chest pain, confusion and other Related Data Home Medications ?Medication ?Instructions ?Recorded ?Confirmed ?Last Taken ?Type atorvastatin 80 mg tablet 1 tablet PO DAILY 12/13/21 12/21/23 Unknown History multivit with minerals-iron 18 1 tablet PO DAILY 12/13/21 12/21/23 Unknown History mg-folic ac 400 mcg-vit K 25 mcg tablet (Adults Multivitamin) omeprazole 40 mg capsule,delayed 1 cap PO DAILY 12/13/21 12/21/23 Unknown History release amlodipine 10 mg tablet 5 mg PO DAILY 12/10/24 Unknown History sertraline 100 mg tablet 100 mg PO Q24H 12/10/24 Unknown History topiramate 50 mg tablet 50 mg PO Q12H 12/10/24 Unknown History Allergies Allergy/AdvReac Type Severity Reaction Status Date / Time azithromycin Allergy Difficulty Verified 02/19/25 00:07 Breathing Penicillins Allergy Itching Verified 02/19/25 00:07 povidone-iodine (From Allergy Rash Verified 02/19/25 00:07 Betadine) Sulfa (Sulfonamide Allergy Difficulty Verified 02/19/25 00:07 Antibiotics) Breathing tetracycline Allergy Difficulty Verified 02/19/25 00:07 Breathing Review of Systems 2 Review of Systems: All systems reviewed & are unremarkable except as noted in HPI and below ROS unobtainable: Yes unobtainable due to endotracheal tube Constitutional: Constitutional: Reports no additional constitutional complaints Eyes: Eyes: Reports no additional eye complaints ENT: Reports system reviewed and no additional complaints, except as documented Cardiovascular: Cardiovascular: Reports no additional cardiovascular complaints Respiratory: Respiratory: Reports no additional respiratory complaints Gastrointestinal: Gastrointestinal: Reports no additional gastrointestinal complaints Genitourinary: Genitourinary: Reports no additional female genitourinary complaints Musculoskeletal: Musculoskeletal: Reports no additional musculoskeletal complaints Integumentary/Breasts: Skin/Breast: Reports system reviewed and no additional complaints, except as docu Neurologic: Reports system reviewed and no additional complaints, except as documented and Reports as per HPI Psychiatric: Psychiatric: Reports as per HPI Endocrine: Endocrine: Reports as per HPI Hematologic/Lymphatic: Hematologic/Lymphatic: Reports no additional hematologic/lymphatic complaints Allergic/Immunologic: Allergic/Immunologic: Reports no additional allergic/immunologic complaints PMFSH Past Medical History Medical History section wound complication 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 Surgical History Surgical History ASSOCIATE CIVIL ENGINEER (ventriculoperitoneal) shunt status Exam 2 Const: General: healthy appearing Nutritional Appearance: well nourished Orientation/consciousness: patient oriented x3 HENMT: Head: normal to inspection Ears: external ears normal F ladi/Nose/Sinus: Normal external nose present Face and sinus: normal facial exam Mouth: Yes Normal oral and palatal mucosa present Teeth and gingiva: dentition normal Eyes: Conjunctivae: conjunctivae normal Pupils: Equal, round and reactive pupils present EOM: EOMs intact bilaterally Neck: Neck: normal visual inspection Chest: Chest palpation & inspection: normal inspection of the chest Resp: Effort & Inspection: normal respiratory effort and not labored A uscultation: clear to auscultation bilaterally and no crackles Cardio: Rate: regular rate and not bradycardic Rhythm: regular rhythm and regular rhythm GI: Inspection: non-distended GI Palp: Yes Soft to palpation and No Tenderness to palpation present (GI) Auscultation: normal bowel sounds, absent bowel sounds, Hyperactive bowel sounds present and Hypoactive bowel sounds present : General: Yes bladder normal to palpation Back/Spine/Pelvis: Back: no CVA tenderness Skin: General skin exam: normal color Wounds: no wounds Neuro: General: patient oriented x3, moves all extremities and no meningeal signs Cranial nerves: Yes Nystagmus not present Speech: normal speech G ait exam (Neuro): Normal gait present Extrem: General: normal to inspection, no clubbing, cyanosis or edema and no pedal edema Psych: Mental Status: mental status grossly normal Affect: normal affect Attitude: cooperative Course Vital Signs Vital signs: Vital Signs Blood Pressure 136/74 02/18/25 19:15 Pulse Oximetry 96 02/18/25 19:15 Blood Pressure 122/73 02/18/25 19:30 Pulse Oximetry 98 02/18/25 19:30 MDM - Fall MDM Narrative Medical decision making narrative: patient is a 49-year-old female with a fall ground level to the right side of her body and residual pain. we will do x-rays and CT scans. Will check labs. Lab Data Attestation: I reviewed the patient's lab results. 02/18/25 20:27 02/18/25 20:27 Labs: Lab Results 02/18/25 02/18/25 Range/Units 20:27 23:50 WBC 11.8 H (4.8-10.8) K/mm3 RBC 4.68 (4.20-5.40) M/mm3 Hgb 13.0 (12.0-15.0) g/dL Hct 40.7 (35.0-49.0) % MCV 87.0 (78.0-102.0) fL MCH 27.8 (27.0-31.0) pg MCHC 31.9 L (32-36) g/dL RDW 14.4 (11.6-14.4) % Plt Count 222 (150-420) K/mm3 MPV 12.2 H (9.2-11.8) fl Immature Gran % (Auto) 0.6 H (0.0-0.0) % Neut % (Auto) 81.2 H (50.0-70.0) % Lymph % (Auto) 11.7 L (18.0-42.0) % [place] % (Auto) 5.7 (2.0-11.0) % Eos % (Auto) 0.5 L (1.0-6.0) % Baso % (Auto) 0.3 (0.0-1.0) % Lymph # (Auto) 1.38 (1.10-4.50) K/mm3 [place] # (Auto) 0.67 (0.10-0.90) K/mm3 Eos # (Auto) 0.06 (0.02-0.50) K/mm3 Baso # (Auto) 0.04 (0.00-0.10) K/mm3 Abs Immat Gran (auto) 0.07 H (0.00-0.00) K/mm3 Absolute Neuts (auto) 9.55 H (1.70-7.20) K/mm3 Absolute Nucleated RBC 0.00 (0.00-0.00) K/mm3 Nucleated RBC % 0.0 (0-0.0) % Sodium 143 (137-145) mmol/L Potassium 3.4 (3.4-5.0) mmol/L Chloride 108 H (98-107) mmol/L Carbon Dioxide 21 L (22-30) mmol/L Anion Gap 14 H (4-12) mmol/L BUN 19 H (7-17) mg/dL Creatinine 1.86 H (0.7-1.0) mg/dL Estim Creat Clear Calc Not Reportable Estimated GFR 29 L (59 - ) Glucose 109 (65-110) mg/dL Calculated Osmolality 299 H (285-295) mOsm/kg Lactic Acid 2.0 (0.4-2.0) mmol/L Calcium 9.8 (8.4-10.2) mg/dL Total Bilirubin 0.8 (0.2-1.3) mg/dL AST 25 (14-36) U/L ALT 15 (6-35) U/L Alkaline Phosphatase 91 (38-126) U/L Total Creatine Kinase 33 (30-135) U/L Troponin I < 0.012 (0.000-0.034) ng/mL Total Protein 7.8 (6.3-8.2) g/dL Albumin 4.5 (3.5-5.1) g/dL Urine Color Pending Urine Appearance Pending Urine pH Pending Ur Specific [place] Pending Urine Protein Pending Urine Glucose (UA) Pending Urine Ketones Pending Ur Blood (Man) Pending Urine Nitrate Pending Urine Bilirubin Pending Urine Urobilinogen Pending Leukocyte Esterase Rfl Pending Imaging Data Radiologist's impression: Chest x-ray is negative for acute process right shoulder x-ray is negative for acute process right hip and pelvis is negative for acute process cervical CT spine is negative for acute process head CT is negative for acute process ECG Data EKG #1: Attestation: I personally reviewed and interpreted this ECG as follows: ECG completion date: 02/19/25 ECG completion time: 00:32 EKG Interpretation: normal rate, sinus rhythm, no ectopy, non-specific ST changes, normal QRS, normal QT and left axis Discharge Plan Discharge Clinical Impression: TWIN (acute kidney injury), Fall, Contusion, Head injury, UTI (urinary tract infection) Patient Disposition: Home Condition: Stable Instructions: Antibiotic Form, Head Injury (ED), Contusion in Adults (ED) Patient Language: Guatemalan Prescriptions: New ciprofloxacin HCl [Cipro] 500 mg tablet 500 mg PO BID 7 Days Qty: 14 0RF No Action atorvastatin 80 mg tablet 1 tablet PO DAILY omeprazole 40 mg capsule,delayed release(DR/EC) 1 cap PO DAILY Adults Multivitamin 18 mg iron-400 mcg-25 mcg Tablet 1 tablet PO DAILY sertraline 100 mg tablet 100 mg PO Q24H topiramate 50 mg tablet 50 mg PO Q12H amlodipine 10 mg tablet 5 mg PO DAILY Follow-up/Referrals: Kamran,ELVIA Hughes [Primary Care Provider] - Time of Disposition: 00:29
--- OUTSIDE RECORDS SUMMARY | 2025-02-18 18:32 | XMS_ITS | Clinical Summary ---
Author Organization [facility] Address [address] [place] [id number] Care Team Providers Care Senior Core Java Developer Name Role Phone Thaddeus Medrano MD Primary Care Provider [phone] Social History Tobacco Use Types Packs/Day Years Used Date Smoking Tobacco: Never Assessed Comments Unknown Sex and Gender Information Value Date Recorded Sex Assigned at Not on file Legal Sex Female 9:24 PM [employer] Gender Identity Not on file Sexual Orientation [...] TANVI BILAT DIGI Routine 07/27/2019 9:46 AM [employer] Abscess of right breast from Last 3 Months or Most Recently Relevant to Health Maintenance Results * MG DIAG W TANVI BILAT DIGI (07/27/2019 9:46 AM [employer]) Anatomical Region Laterality Modality Breast Bilateral Mammography, Rad iographic Imaging 08/03/2019 11:1 3 AM [employer] Narrative 08/03/2019 11:29 AM [employer] Examination: BILATERAL DIGITAL DIAGNOSTIC MAMMOGRAM WITH TOMOSYNTHESIS [id number] Clinical Indication: WADE SZYMANSKI Female 44 years [...] subdermal blood vessel. The former may be contact center representative residual sequelae of treated mastitis-abscess given [...] Most Recently Relevant to Health Maintenance Insurance [facility] Care Teams Senior Core Java Developer Relationship Specialty Start Date End Date Thaddeus Medrano MD [address] [place] [phone] PCP - General FAMILY PRACTICE 07/05/19
--- OUTSIDE RECORDS SUMMARY | 2025-02-18 18:32 | XMS_ITS | Encounter Summary ---
Author Organization [facility] Address [address] [place] [id number] Care Team Providers Care Mold Car Pusher Name Role Phone Thaddeus Medrano MD Primary Care Provider [phone] Encounter Details Date Type Department Care Team (Late st Contact Info) Description 12/12/2018 Abstract SFL CONVERSION [address] [address] , Generic Conversion, Social History Tobacco Use Types Packs/Day Years Used Date Smoking Tobacco: Never Assessed Comments Unknown Sex and Gender Information Value Date Recorded Sex Assigned at Not on file Legal Sex Female 9:24 PM MS[employer] Gender Identity Not on file Sexual Orientation Not on file documented as of this encounter Plan of Treatment Not on file documented as of this encounter Visit Diagnoses Not on filedocumented in this encounter Care Teams Mold Car Pusher Relationship Specialty Start Date End Date Thaddeus Medrano MD [address] [place] [phone] PCP - General FAMILY PRACTICE 07/05/19 documented as of this encounter
--- NOTE | 2025-02-18 19:18 | ECG_ITS ---
Test Date: 2025-02-18 19:25:23 Measurements Intervals [place] Rate: 70 P: 49 MS: 167 QRS: -6 QRSD: 85 T: 12 QT: 408 QTc: 441 Interpretive Statements SINUS RHYTHM BASELINE ARTIFACT- I, II, III, AVR, AVL, AVF, V1-V6 BORDERLINE ECG Compared to ECG 12/10/2024 19:51:42 HEART RATE HAS INCREASED Electronically Signed On 02-21-2025 07:10:42 CDT by Vinicio Pettit D.O.
--- NOTE | 2025-02-18 19:46 | PC.NURSE ---
pt unable to urinate
[2025-02-18 20:38] LABS: Hematocrit 40.7 % (35.0-49.0); Hemoglobin 13.0 g/dL (12.0-15.0); Immature Granulocyte Percent A 0.6 % (0.0-0.0); Lymphocytes Absolute Auto 1.38 K/mm3 (1.10-4.50); Mean Corpuscular HGB Conc 31.9 g/dL (32-36); Mean Corpuscular Hemoglobin 27.8 pg (27.0-31.0); Mean Corpuscular Volume 87.0 fL (78.0-102.0); Nucleated Red Blood Cells Absolute Auto 0.00 K/mm3 (0.00-0.00); Nucleated Red Blood Cells Perc 0.0 % (0-0.0); Platelet Count Result 222 K/mm3 (150-420); Red Blood Count 4.68 M/mm3 (4.20-5.40); White Blood Count 11.8 K/mm3 (4.8-10.8)
[2025-02-18 20:51] LABS: Alanine Aminotransferase 15 U/L (6-35); Albumin Level 4.5 g/dL (3.5-5.1); Alkaline Phosphatase 91 U/L (38-126); Anion Gap 14 mmol/L (4-12); Aspartate Amino Transferase 25 U/L (14-36); Bilirubin,Total 0.8 mg/dL (0.2-1.3); Blood Urea Nitrogen 19 mg/dL (7-17); Calcium 9.8 mg/dL (8.4-10.2); Carbon Dioxide 21 mmol/L (22-30); Chloride 108 mmol/L (98-107); Creatine Kinase 33 U/L (30-135); Estimated Glomerular Filt Rate 29; Glucose 109 mg/dL (65-110); Osmolality Calculated 299 mOsm/kg (285-295); Potassium 3.4 mmol/L (3.4-5.0); Sodium 143 mmol/L (137-145); Total Protein 7.8 g/dL (6.3-8.2)
[2025-02-18 21:05] LABS: Troponin I < 0.012 ng/mL (0.000-0.034)
[2025-02-18] MEDS: SODIUM CHLORIDE 0.9% IV 1,000 ML 999 ML IV CONT (22:06)
[2025-02-19] VITALS: BP 117/84; O2SAT 99
[2025-02-19 00:02] LABS: Add Urine Microscopic? YES; Glucose Urine UA Negative (Negative); Leukocyte Esterase Ur Negative LEU/UL (Negative); Nitrate Urine Negative (Negative); Specific Grav Ur 1.020 (1.010-1.020)
[2025-02-19 00:08] LABS: Appearance Urine Sl Cloudy (Clear)
[2025-02-19 00:15] VITALS: BP 134/73; O2SAT 100
[2025-02-19 00:30] VITALS: BP 112/66; O2SAT 100
[2025-02-19 00:45] VITALS: BP 101/89; O2SAT 100
[2025-02-19] MEDS: CIPROFLOXACIN 500 MG TAB PO (00:59)
[2025-02-19 01:00] VITALS: BP 122/78; O2SAT 100
== END 2025-02-19 01:19 | disposition home or self-care (01) ==
PROVIDERS: Emergency Provider Emergency Medicine; PCP Physician Assistant
DX: N17.9 Acute kidney failure, unspecified (principal); S00.93XA Contusion of unspecified part of head, initial encounter; N39.0 Urinary tract infection, site not specified; M25.511 Pain in right shoulder; M25.551 Pain in right hip; W18.30XA Fall on same level, unspecified, initial encounter
CPT/HCPCS: 36415; 70450; 71045; 72125; 73030; 73502; 80053; 81001; 82550; 83605; 84484; 85025; 93005; 96360; 99284; A9270; J7030